=== PATIENT | male | born 1985 | race Two or more races ===

== ENCOUNTER 2023-04-05 00:28 | Inpatient (IN) | payer BC, MEDICAID ==
[~2023-04-05] VITALS: Ht 175.3 cm; Wt 89.5 kg
[2023-04-05] MEDS ORDERED: loperamide 2mg capsule PO PRN (09:25)
[2023-04-05] MEDS ORDERED: mag hydrox/Alum hydrox/simeth 30ml oral suspension PO PRN (09:25)
[2023-04-05] MEDS ORDERED: acetaminophen 325mg tablet PO PRN (09:25)
[2023-04-05] MEDS ORDERED: nicotine 21mg patch - 24 hr TD SCH (09:25)
[2023-04-05] MEDS ORDERED: NICOTINE POLACRILEX 2 MG LOZENGE BC PRN (09:25)
[2023-04-05] MEDS ORDERED: magnesium hydroxide 30ml (MOM) UD suspension PO PRN (09:25)
[2023-04-05] MEDS ORDERED: NO HOME MEDS (09:35)
[2023-04-05 10:00] VITALS: BP 170/123; PULSE 87; RESP 16; TEMP 98.9; O2SAT 98
[2023-04-05] MEDS ORDERED: GABA-530 PO (11:27)
[2023-04-05] MEDS ORDERED: LOSA50TA64 PO (11:27)
[2023-04-05] MEDS ORDERED: ESCI5TAB17 PO (11:27)
[2023-04-05] MEDS ORDERED: OMEP20CA16 PO (11:27)
[2023-04-05] MEDS ORDERED: AMPH5CAP PO (11:27)
[2023-04-05] MEDS ORDERED: ESCI5TAB PO (11:27)
[2023-04-05] MEDS ORDERED: AMPH10CA3 PO (11:35)
[2023-04-05 12:23] VITALS: RESP 16; O2SAT 87
[2023-04-05] MEDS ORDERED: LORazepam 1 MG tablet PO ONE (17:55)
[2023-04-05 19:00] VITALS: RESP 18; O2SAT 100
[2023-04-05 20:00] VITALS: BP 161/121; PULSE 76; RESP 18; TEMP 97.8; O2SAT 100
[2023-04-05] MEDS: gabapentin 100mg capsule PO SCH (20:00)
[2023-04-05] MEDS: losartan 50mg tablet PO SCH (20:01)
[2023-04-05] MEDS: acetaminophen 325mg tablet PO PRN (20:18)
[2023-04-05 21:00] VITALS: BP 142/102; O2SAT 99
[2023-04-06 07:30] VITALS: BP 130/80; PULSE 68; RESP 16; TEMP 98; O2SAT 97
[2023-04-06] MEDS: gabapentin 100mg capsule PO SCH ×2 (07:49→19:30)
[2023-04-06] MEDS: losartan 50mg tablet PO SCH ×2 (07:51→19:30)
[2023-04-06] MEDS: ESCITALOPRAM OXALATE 5 MG TABLET PO SCH (07:53)
[2023-04-06] MEDS ORDERED: ESCITALOPRAM OXALATE 5 MG TABLET PO SCH (08:00)
[2023-04-06] MEDS ORDERED: pantoprazole 40mg Tablet.DR PO SCH (08:00)
[2023-04-06 09:02] LABS: CHOL/HDL RATIO 3.7 (0.00-4.99); CHOLESTEROL 167 MG/DL (0-200); HDL CHOLESTEROL 45 MG/DL (35-60); LDL CHOLESTEROL 85 MG/DL (50-100); TRIGLYCERIDES 239 MG/DL (20-135)
[2023-04-06 09:17] LABS: HEMOGLOBIN A1C 4.8 % (4.5-6.2)
[2023-04-06] MEDS: hydrOXYzine 25 MG tablet PO PRN (12:47)
[2023-04-06 19:00] VITALS: RESP 20; O2SAT 97
[2023-04-06 19:12] VITALS: BP 160/97; PULSE 70; RESP 20; TEMP 97.5; O2SAT 97
[2023-04-06] MEDS: acetaminophen 325mg tablet PO PRN (19:45)
[2023-04-06] MEDS: traZODone 50mg tablet PO PRN (22:24)
[2023-04-07 07:00] VITALS: RESP 16; O2SAT 98
[2023-04-07] MEDS: losartan 50mg tablet PO SCH ×2 (07:24→20:33)
[2023-04-07] MEDS: pantoprazole 40mg Tablet.DR PO SCH (07:24)
[2023-04-07] MEDS: ESCITALOPRAM OXALATE 5 MG TABLET PO SCH (07:24)
[2023-04-07] MEDS: gabapentin 100mg capsule PO SCH ×2 (07:24→20:33)
[2023-04-07] MEDS: dextroamphetamine/amphetamine ER 5 MG CAP.ER.24H PO SCH (07:41)
[2023-04-07 08:00] VITALS: BP 116/79; PULSE 78; RESP 16; TEMP 97.2; O2SAT 98
[2023-04-07 19:50] VITALS: BP 145/102; PULSE 0; RESP 17; TEMP 98.3; O2SAT 98
[2023-04-07] MEDS: acetaminophen 325mg tablet PO PRN (20:32)
[2023-04-07] MEDS: prazosin 1mg capsule PO SCH (20:33)
[2023-04-07] MEDS: traZODone 50mg tablet PO PRN (20:33)
[2023-04-07 21:28] VITALS: BP 170/114; RESP 16
[2023-04-07] MEDS ORDERED: cloNIDine 0.1 mg tablet PO ONE (21:45)
[2023-04-07] MEDS: hydrOXYzine 25 MG tablet PO PRN (21:49)
[2023-04-07 22:45] VITALS: BP 146/110; RESP 16
[2023-04-08 07:00] VITALS: RESP 16; O2SAT 98
[2023-04-08 08:00] VITALS: BP 107/67; PULSE 67; RESP 16; TEMP 97; O2SAT 98
[2023-04-08] MEDS: dextroamphetamine/amphetamine ER 5 MG CAP.ER.24H PO SCH (08:00)
[2023-04-08] MEDS: losartan 50mg tablet PO SCH ×2 (08:56→20:08)
[2023-04-08] MEDS: gabapentin 100mg capsule PO SCH ×2 (08:57→20:09)
[2023-04-08] MEDS: ESCITALOPRAM OXALATE 5 MG TABLET PO SCH (08:57)
[2023-04-08] MEDS: pantoprazole 40mg Tablet.DR PO SCH (08:57)
[2023-04-08] MEDS: hydrOXYzine 25 MG tablet PO PRN ×2 (10:25→20:10)
[2023-04-08 19:25] VITALS: BP 141/99; PULSE 80; RESP 16; TEMP 98; O2SAT 98
[2023-04-08] MEDS: traZODone 50mg tablet PO PRN (20:08)
[2023-04-08] MEDS: prazosin 1mg capsule PO SCH (20:09)
[2023-04-08] MEDS: acetaminophen 325mg tablet PO PRN (20:09)
[2023-04-09 07:00] VITALS: RESP 14; O2SAT 100
[2023-04-09] MEDS: gabapentin 100mg capsule PO SCH (07:49)
[2023-04-09] MEDS: pantoprazole 40mg Tablet.DR PO SCH (07:49)
[2023-04-09] MEDS: ESCITALOPRAM OXALATE 5 MG TABLET PO SCH (07:50)
[2023-04-09] MEDS: losartan 50mg tablet PO SCH (07:50)
[2023-04-09 08:00] VITALS: BP 127/83; PULSE 59; RESP 14; TEMP 97.3; O2SAT 100
[2023-04-09] MEDS: dextroamphetamine/amphetamine ER 5 MG CAP.ER.24H PO SCH (08:00)
[2023-04-09] MEDS ORDERED: PRAZ1CAP5 PO (11:21)
[2023-04-09] MEDS ORDERED: HYDR-3686 PO (11:21)
[2023-04-09] MEDS ORDERED: GABA-530 PO (11:21)
[2023-04-09] MEDS ORDERED: ESCI-8 PO (11:21)
[2023-04-09] MEDS ORDERED: TRAZ-251 PO (11:21)
== END 2023-04-09 13:25 | disposition home or self-care (01) | DRG 885 ==
LOC: ADULT MH 10:01
PROVIDERS: ADMIT Psychiatry & Neurology Psychiatry; ATTEND Psychiatry & Neurology Psychiatry
PROC: GZHZZZZ Group Psychotherapy (ICD-10-PCS; principal; 2023-04-05)
DX: F33.2 Major depressive disorder, recurrent severe without psychotic features (principal); R45.851 Suicidal ideations; G47.30 Sleep apnea, unspecified; G62.9 Polyneuropathy, unspecified; I10 Essential (primary) hypertension; M25.562 Pain in left knee; F19.10 Other psychoactive substance abuse, uncomplicated; F90.9 Attention-deficit hyperactivity disorder, unspecified type; F41.1 Generalized anxiety disorder; F10.21 Alcohol dependence, in remission; F15.21 Other stimulant dependence, in remission; F11.21 Opioid dependence, in remission; Z91.51 Personal history of suicidal behavior; Z88.5 Allergy status to narcotic agent; Z91.018 Allergy to other foods
CPT/HCPCS: 36415; 70551; 73564; 80061; 83036; 85025; 87081; Q0177

== ENCOUNTER 2023-07-19 22:19 | Inpatient (IN) | payer BC, MEDICAID ==
[~2023-07-19] VITALS: Ht 177.8 cm; Wt 79.5 kg
[~2023-07-19 22:19] MED LIST: AMPH10CA3 PO; ESCI-8 PO; GABA-530 PO; HYDR-3686 PO; LOSA50TA64 PO; OMEP20CA16 PO; PRAZ1CAP5 PO; TRAZ-251 PO
[2023-07-19 23:18] LABS: WHITE BLOOD COUNT 7.3 X10'3 (4.5-11.0)
[2023-07-19 23:19] LABS: BASOPHILS # (AUTO) 0.1 X10'3 (0-0.2); BASOPHILS % (AUTO) 1.1 % (0-1); EOSINOPHILS # (AUTO) 0.2 X10'3 (0-0.9); EOSINOPHILS % (AUTO) 2.8 % (0-6); HEMATOCRIT 43.4 % (42.0-52.0); HEMOGLOBIN 15.3 g/dl (14.0-17.9); LYMPHOCYTES # (AUTO) 1.9 X10'3 (1.1-4.8); LYMPHOCYTES % (AUTO) 25.4 % (21-51); MEAN CORPUSCULAR HEMOGLOBIN 32.7 PG (27.0-31.0); MEAN CORPUSCULAR HGB CONC 35.3 g/dL (33.0-36.5); MEAN CORPUSCULAR VOLUME 92.7 FL (78-98); MEAN PLATELET VOLUME 7.1 FL (7.4-10.4); MONOCYTES # (AUTO) 0.7 X10'3 (0-0.9); NEUTROPHILS # (AUTO) 4.5 X10'3 (1.8-7.7); NEUTROPHILS % (AUTO) 61.7 % (42-75); PLATELET COUNT 212 X10'3 (140-440); RED BLOOD COUNT 4.68 X10'6 (4.70-6.10); RED CELL DISTRIBUTION WIDTH 13.6 % (11.5-14.5)
[2023-07-19 23:34] LABS: ALBUMIN 3.8 G/DL (3.4-5.0); ANION GAP 13 (8-16); BLOOD UREA NITROGEN 8 MG/DL (7-18); BUN/CREATININE RATIO 7.3 (10.0-20.0); CALCIUM 8.6 MG/DL (8.5-10.1); CHLORIDE 98 MMOL/L (99-107); GLUCOSE 126 MG/DL (70-104); POTASSIUM 3.3 MMOL/L (3.5-5.1); SODIUM 137 MMOL/L (135-145); TOTAL CARBON DIOXIDE 26.4 MMOL/L (24-32); eCRCL 83 ML/MIN; eGFR 75 ML/MIN
[2023-07-19] MEDS: fentaNYL/PF 50MCG/1 ML 2ML syringe IV ONE (23:53)
[2023-07-19] MEDS: ondansetron/PF 4mg/2ml inj IV ONE (23:53)
[2023-07-19] MEDS: normal saline 1000ml 1,000 ML IV ONE (23:57)
[2023-07-20] MEDS: fentaNYL/PF 50MCG/1 ML 2ML syringe IV ONE (01:32)
[2023-07-20 01:48] LABS: ALANINE AMINOTRANSFERASE 279 U/L (12-78); ALBUMIN/GLOBULIN RATIO 0.9 (1.1-1.5); ALKALINE PHOSPHATASE 125 IU/L (46-116); ASPARTATE AMINO TRANSFERASE 175 U/L (10-37); BILIRUBIN,TOTAL 0.6 MG/DL (0.1-1.0); ETHANOL 109 MG/DL (<10)
[2023-07-20 02:07] LABS: LIPASE > 375 U/L (16-77)
[2023-07-20] MEDS ORDERED: magnesium 2GM in 50ml NS 50 ML IV PRN (03:55)
[2023-07-20] MEDS ORDERED: mag hydrox/Alum hydrox/simeth 30ml oral suspension PO PRN (03:55)
[2023-07-20] MEDS ORDERED: magnesium 4gm in 100ml NS 100 ML IV PRN (03:55)
[2023-07-20] MEDS ORDERED: magnesium hydroxide 30ml (MOM) UD suspension PO PRN (03:55)
[2023-07-20] MEDS ORDERED: acetaminophen 325mg tablet PO PRN (03:55)
[2023-07-20] MEDS ORDERED: potassium Cl 20 mEq SR tablet PO PRN (03:55)
[2023-07-20] MEDS ORDERED: potassium Cl 40MEQ/1/2NS 520ml 520 ML IV PRN (03:55)
[2023-07-20] MEDS ORDERED: magnesium Cl slow-release 64mg tablet PO PRN (03:55)
[2023-07-20 04:31] LABS: BILIRUBIN,URINE NEGATIVE (Neg); CLARITY,URINE CLEAR (Clear); COLOR,URINE YELLOW (Yellow); GLUCOSE, URINE NEGATIVE (Neg); KETONES,URINE NEGATIVE (Neg); LEUKOCYTE ESTERASE ,URINE NEGATIVE (Neg); NITRITES, URINE NEGATIVE (Neg); OCCULT BLOOD,URINE NEGATIVE (Neg); PROTEIN,URINE NEGATIVE (Neg); UROBILINOGEN,URINE 0.2 E.U/dL (0.2-1.0)
[2023-07-20 04:36] LABS: UA COLLECTION TYPE CLN CATCH MIDSTREAM
[2023-07-20 04:37] LABS: URINE AMPHETAMINE SCREEN NEGATIVE (Neg); URINE BARBITUATE SCREEN NEGATIVE (Neg); URINE BENZODIAZEPINES SCREEN NEGATIVE (Neg); URINE CANNABINOID SCREEN NEGATIVE (Neg); URINE COCAINE SCREEN NEGATIVE (Neg); URINE METHADONE SCREEN NEGATIVE (Neg); URINE OPIATE SCREEN NEGATIVE (Neg); URINE PHENCYCLIDINE SCREEN NEGATIVE (Neg)
[2023-07-20] MEDS ORDERED: haloperidol lactate 5mg/ml inj IM PRN (05:05)
[2023-07-20] MEDS ORDERED: haloperidol 5mg tablet PO PRN (05:05)
[2023-07-20] MEDS: ringers solution, lacted 1,000 ML IV SCH (05:13)
[2023-07-20] MEDS: HYDROmorphone 1 mg/ml syringe IV PRN (05:46)
[2023-07-20] MEDS ORDERED: HYDRALAZINE (06:41)
[2023-07-20 08:23] LABS: CHOL/HDL RATIO 4.8 (0.00-4.99); CHOLESTEROL 193 MG/DL (0-200); FREE T4 (FREE THYROXINE) 0.85 NG/DL (0.73-1.40); HDL CHOLESTEROL 40 MG/DL (35-60); LDL CHOLESTEROL 100 MG/DL (50-100); LIPASE 337 U/L (16-77); THYROID STIMULATING HORMONE 2.46 ulU/ml (0.34-4.50); TRIGLYCERIDES 386 MG/DL (20-135)
[2023-07-20] MEDS: pantoprazole 40 MG vial IV SCH (08:31)
[2023-07-20] MEDS: multivitamins, therapeutics tablet PO SCH (08:32)
[2023-07-20] MEDS: LORazepam 1 MG tablet PO PRN (08:32)
[2023-07-20 08:34] LABS: HEMOGLOBIN A1C 5.5 % (4.5-6.2)
[2023-07-20] MEDS: losartan 50mg tablet PO SCH ×2 (08:35→08:45)
[2023-07-20] MEDS: heparin, porcine 5000 units/ml vial SQ SCH (08:37)
[2023-07-20] MEDS: docusate sod 100mg capsule PO SCH (08:38)
[2023-07-20] MEDS: K and/or MAG REPLACEMENT MC SCH (08:39)
[2023-07-20] MEDS: potassium Cl 20 mEq SR tablet PO PRN (08:48)
[2023-07-20 18:00] VITALS: BP 166/117; PULSE 73; RESP 14; TEMP 97.7; O2SAT 97
[2023-07-20 20:10] VITALS: RESP 16; O2SAT 98
[2023-07-20 22:00] VITALS: BP 166/118; PULSE 70; RESP 16; TEMP 97.7; O2SAT 98
[2023-07-21] VITALS (8 sets, daily range): BP systolic 145–184; BP diastolic 91–133; PULSE 63–82; RESP 16–19; TEMP 96.7–98.4; O2SAT 94–99
[2023-07-21 06:14] LABS: BASOPHILS # (AUTO) 0.1 X10'3 (0-0.2); BASOPHILS % (AUTO) 1.2 % (0-1); EOSINOPHILS # (AUTO) 0.2 X10'3 (0-0.9); EOSINOPHILS % (AUTO) 5.3 % (0-6); HEMATOCRIT 39.3 % (42.0-52.0); HEMOGLOBIN 13.8 g/dl (14.0-17.9); LYMPHOCYTES # (AUTO) 1.4 X10'3 (1.1-4.8); MEAN CORPUSCULAR HEMOGLOBIN 32.7 PG (27.0-31.0); MEAN CORPUSCULAR HGB CONC 35.1 g/dL (33.0-36.5); MEAN CORPUSCULAR VOLUME 93.1 FL (78-98); MEAN PLATELET VOLUME 7.4 FL (7.4-10.4); MONOCYTES # (AUTO) 0.4 X10'3 (0-0.9); MONOCYTES % (AUTO) 9.6 % (2-12); NEUTROPHILS # (AUTO) 2.3 X10'3 (1.8-7.7); NEUTROPHILS % (AUTO) 51.9 % (42-75); PLATELET COUNT 144 X10'3 (140-440); RED BLOOD COUNT 4.22 X10'6 (4.70-6.10); RED CELL DISTRIBUTION WIDTH 13.5 % (11.5-14.5); WHITE BLOOD COUNT 4.5 X10'3 (4.5-11.0)
[2023-07-21 06:29] LABS: ALANINE AMINOTRANSFERASE 178 U/L (12-78); ALBUMIN 3.1 G/DL (3.4-5.0); ALBUMIN/GLOBULIN RATIO 0.8 (1.1-1.5); ALKALINE PHOSPHATASE 54 IU/L (46-116); ANION GAP 6 (8-16); ASPARTATE AMINO TRANSFERASE 101 U/L (10-37); BILIRUBIN,TOTAL 1.5 MG/DL (0.1-1.0); BLOOD UREA NITROGEN 10 MG/DL (7-18); BUN/CREATININE RATIO 8.4 (10.0-20.0); CALCIUM 8.7 MG/DL (8.5-10.1); CHLORIDE 99 MMOL/L (99-107); CREATININE 1.19 MG/DL (0.60-1.10); GLUCOSE 102 MG/DL (70-104); MAGNESIUM 1.6 MG/DL (1.5-2.4); PHOSPHORUS 3.5 MG/DL (2.3-4.5); SODIUM 137 MMOL/L (135-145); TOTAL CARBON DIOXIDE 31.8 MMOL/L (24-32); TOTAL PROTEIN 6.9 G/DL (6.4-8.2); eCRCL 88 ML/MIN; eGFR 69 ML/MIN
[2023-07-21] MEDS: LORazepam 2 mg/ml vial IV PRN (07:52)
[2023-07-21 09:27] LABS: CHOLESTEROL 171 MG/DL (0-200); HDL CHOLESTEROL 34 MG/DL (35-60); LDL CHOLESTEROL 80 MG/DL (50-100); TRIGLYCERIDES 447 MG/DL (20-135)
[2023-07-21] MEDS: cloNIDine 0.1 mg tablet PO PRN (11:08)
[2023-07-21] MEDS: atenolol 25mg tablet PO SCH (11:08)
[2023-07-21] MEDS: hyDRALAzine 10mg tablet PO PRN (21:31)
[2023-07-22] VITALS (8 sets, daily range): BP systolic 126–173; BP diastolic 93–122; PULSE 61–69; RESP 16–18; TEMP 96.2–97.1; O2SAT 95–98
[2023-07-22 06:14] LABS: ALANINE AMINOTRANSFERASE 188 U/L (12-78); ALBUMIN 3.3 G/DL (3.4-5.0); ALBUMIN/GLOBULIN RATIO 0.8 (1.1-1.5); ALKALINE PHOSPHATASE 76 IU/L (46-116); ASPARTATE AMINO TRANSFERASE 140 U/L (10-37); BILIRUBIN,TOTAL 1.1 MG/DL (0.1-1.0); BLOOD UREA NITROGEN 9 MG/DL (7-18); BUN/CREATININE RATIO 8.9 (10.0-20.0); CHLORIDE 97 MMOL/L (99-107); CREATININE 1.01 MG/DL (0.60-1.10); GLUCOSE 91 MG/DL (70-104); MAGNESIUM 2.1 MG/DL (1.5-2.4); PHOSPHORUS 4.6 MG/DL (2.3-4.5); POTASSIUM 4.4 MMOL/L (3.5-5.1); SODIUM 132 MMOL/L (135-145); TOTAL PROTEIN 7.4 G/DL (6.4-8.2); eCRCL 103 ML/MIN; eGFR 83 ML/MIN
[2023-07-22 06:15] LABS: BASOPHILS % (AUTO) 0.8 % (0-1); EOSINOPHILS # (AUTO) 0.2 X10'3 (0-0.9); EOSINOPHILS % (AUTO) 4.1 % (0-6); HEMATOCRIT 41.2 % (42.0-52.0); HEMOGLOBIN 14.7 g/dl (14.0-17.9); LYMPHOCYTES # (AUTO) 1.3 X10'3 (1.1-4.8); LYMPHOCYTES % (AUTO) 25.1 % (21-51); MEAN CORPUSCULAR HEMOGLOBIN 33.2 PG (27.0-31.0); MEAN CORPUSCULAR HGB CONC 35.7 g/dL (33.0-36.5); MEAN CORPUSCULAR VOLUME 92.9 FL (78-98); MEAN PLATELET VOLUME 7.8 FL (7.4-10.4); MONOCYTES # (AUTO) 0.4 X10'3 (0-0.9); MONOCYTES % (AUTO) 7.3 % (2-12); NEUTROPHILS # (AUTO) 3.2 X10'3 (1.8-7.7); NEUTROPHILS % (AUTO) 62.7 % (42-75); PLATELET COUNT 173 X10'3 (140-440); RED BLOOD COUNT 4.43 X10'6 (4.70-6.10); RED CELL DISTRIBUTION WIDTH 13.5 % (11.5-14.5)
[2023-07-22 06:22] LABS: ANION GAP 8 (8-16); TOTAL CARBON DIOXIDE 27.2 MMOL/L (24-32)
[2023-07-22] MEDS: pantoprazole 40mg Tablet.DR PO SCH (08:15)
[2023-07-22] MEDS: losartan 50mg tablet PO SCH ×2 (08:16→20:00)
[2023-07-22] MEDS: ondansetron/PF 4mg/2ml inj IV PRN (09:52)
[2023-07-22] MEDS ORDERED: traZODone 50mg tablet PO PRN (13:25)
[2023-07-22] MEDS: gabapentin 100mg capsule PO SCH (19:55)
[2023-07-22] MEDS: prazosin 1mg capsule PO SCH (21:46)
[2023-07-23 03:16] LABS: BASOPHILS % (AUTO) 0.9 % (0-1); EOSINOPHILS # (AUTO) 0.2 X10'3 (0-0.9); EOSINOPHILS % (AUTO) 3.1 % (0-6); HEMATOCRIT 41.8 % (42.0-52.0); HEMOGLOBIN 14.9 g/dl (14.0-17.9); LYMPHOCYTES # (AUTO) 1.2 X10'3 (1.1-4.8); LYMPHOCYTES % (AUTO) 24.8 % (21-51); MEAN CORPUSCULAR HEMOGLOBIN 33.2 PG (27.0-31.0); MEAN CORPUSCULAR HGB CONC 35.6 g/dL (33.0-36.5); MEAN CORPUSCULAR VOLUME 93.2 FL (78-98); MEAN PLATELET VOLUME 7.5 FL (7.4-10.4); MONOCYTES # (AUTO) 0.3 X10'3 (0-0.9); MONOCYTES % (AUTO) 6.7 % (2-12); NEUTROPHILS # (AUTO) 3.1 X10'3 (1.8-7.7); NEUTROPHILS % (AUTO) 64.5 % (42-75); PLATELET COUNT 187 X10'3 (140-440); RED BLOOD COUNT 4.49 X10'6 (4.70-6.10); RED CELL DISTRIBUTION WIDTH 13.9 % (11.5-14.5); WHITE BLOOD COUNT 4.9 X10'3 (4.5-11.0)
[2023-07-23 03:29] LABS: ALANINE AMINOTRANSFERASE 315 U/L (12-78); ALBUMIN 3.4 G/DL (3.4-5.0); ALBUMIN/GLOBULIN RATIO 0.8 (1.1-1.5); ALKALINE PHOSPHATASE 63 IU/L (46-116); ANION GAP 9 (8-16); ASPARTATE AMINO TRANSFERASE 343 U/L (10-37); BILIRUBIN,TOTAL 1.2 MG/DL (0.1-1.0); BLOOD UREA NITROGEN 10 MG/DL (7-18); BUN/CREATININE RATIO 8.5 (10.0-20.0); CALCIUM 9.3 MG/DL (8.5-10.1); CHLORIDE 100 MMOL/L (99-107); CREATININE 1.17 MG/DL (0.60-1.10); GLUCOSE 96 MG/DL (70-104); MAGNESIUM 2.3 MG/DL (1.5-2.4); PHOSPHORUS 4.1 MG/DL (2.3-4.5); SODIUM 135 MMOL/L (135-145); TOTAL CARBON DIOXIDE 25.8 MMOL/L (24-32); TOTAL PROTEIN 7.5 G/DL (6.4-8.2); eCRCL 89 ML/MIN; eGFR 70 ML/MIN
[2023-07-23 06:40] VITALS: BP 115/83; PULSE 79; RESP 16; TEMP 97.2; O2SAT 96
[2023-07-23] MEDS: thiamine 100mg tablet PO SCH (07:43)
[2023-07-23 08:00] VITALS: RESP 16; O2SAT 96
[2023-07-23] MEDS ORDERED: non-formulary drug (Omeprazole 1 CAP) PO SCH (08:00)
[2023-07-23] MEDS: normal saline 1000ml 1,000 ML IV SCH (10:29)
[2023-07-23] MEDS: dicyclomine 10 MG capsule PO PRN (10:33)
[2023-07-23] MEDS: ESCITALOPRAM 10 mg tablet 10 MG TABLET PO SCH (10:58)
[2023-07-23 11:00] VITALS: BP 148/118; PULSE 80; RESP 18; TEMP 97.5; O2SAT 98
[2023-07-23 18:00] VITALS: BP 155/104; PULSE 66; RESP 18; TEMP 97.7; O2SAT 99
[2023-07-23 20:00] VITALS: RESP 18; O2SAT 95
[2023-07-23 22:00] VITALS: BP 142/104; PULSE 67; RESP 18; TEMP 97.6; O2SAT 97
[2023-07-23] MEDS: traZODone 50mg tablet PO PRN (22:12)
[2023-07-24 06:00] VITALS: BP 139/104; PULSE 69; RESP 18; TEMP 97; O2SAT 99
[2023-07-24 06:19] LABS: ALANINE AMINOTRANSFERASE 292 U/L (12-78); ALBUMIN 3.2 G/DL (3.4-5.0); ALBUMIN/GLOBULIN RATIO 0.8 (1.1-1.5); ALKALINE PHOSPHATASE 62 IU/L (46-116); ANION GAP 8 (8-16); ASPARTATE AMINO TRANSFERASE 253 U/L (10-37); BASOPHILS # (AUTO) 0.1 X10'3 (0-0.2); BASOPHILS % (AUTO) 1.2 % (0-1); BLOOD UREA NITROGEN 11 MG/DL (7-18); BUN/CREATININE RATIO 9.3 (10.0-20.0); CALCIUM 8.6 MG/DL (8.5-10.1); CHLORIDE 102 MMOL/L (99-107); CREATININE 1.18 MG/DL (0.60-1.10); EOSINOPHILS # (AUTO) 0.2 X10'3 (0-0.9); GLUCOSE 87 MG/DL (70-104); HEMATOCRIT 40.8 % (42.0-52.0); HEMOGLOBIN 14.4 g/dl (14.0-17.9); LYMPHOCYTES # (AUTO) 1.3 X10'3 (1.1-4.8); MAGNESIUM 2.2 MG/DL (1.5-2.4); MEAN CORPUSCULAR HEMOGLOBIN 33.1 PG (27.0-31.0); MEAN CORPUSCULAR HGB CONC 35.2 g/dL (33.0-36.5); MEAN CORPUSCULAR VOLUME 93.9 FL (78-98); MEAN PLATELET VOLUME 7.4 FL (7.4-10.4); MONOCYTES # (AUTO) 0.4 X10'3 (0-0.9); MONOCYTES % (AUTO) 9.9 % (2-12); NEUTROPHILS # (AUTO) 2.6 X10'3 (1.8-7.7); NEUTROPHILS % (AUTO) 56.9 % (42-75); PHOSPHORUS 3.5 MG/DL (2.3-4.5); PLATELET COUNT 191 X10'3 (140-440); RED BLOOD COUNT 4.34 X10'6 (4.70-6.10); SODIUM 137 MMOL/L (135-145); TOTAL CARBON DIOXIDE 27.1 MMOL/L (24-32); TOTAL PROTEIN 7.1 G/DL (6.4-8.2); WHITE BLOOD COUNT 4.5 X10'3 (4.5-11.0); eCRCL 89 ML/MIN; eGFR 69 ML/MIN
[2023-07-24] MEDS: hydrOXYzine 25 MG tablet PO PRN (06:55)
[2023-07-24] MEDS ORDERED: NOR5T PO (09:30)
[2023-07-24] MEDS ORDERED: MULT-25 PO (09:30)
[2023-07-24] MEDS ORDERED: LOSA50TA64 PO (09:30)
[2023-07-24] MEDS ORDERED: thiamine tablet PO (09:30)
[2023-07-24] MEDS ORDERED: FOLI1TAB27 PO (09:30)
[2023-07-24] MEDS ORDERED: ATEN-168 PO (09:30)
[2023-07-24 09:43] LABS: LIPASE 111 U/L (16-77)
[2023-07-24 10:00] VITALS: BP 145/104; PULSE 73; RESP 16; TEMP 98.2; O2SAT 99
[2023-07-24] MEDS: folic acid 1mg tablet PO SCH (11:04)
[2023-07-24 11:05] VITALS: BP_SYST 145; PULSE 73
[2023-07-24] MEDS: amLODIPine 5mg tablet PO SCH (11:05)
== END 2023-07-24 13:21 | disposition home or self-care (01) | DRG 282 ==
LOC: ER 22:21 → UNDOADMIN 07-20 04:09 → ED HOLD 07-20 04:09 → EDBEDREQ 07-20 16:23 → ED HOLD 07-20 18:25 → SUR 3N 07-20 18:25
PROVIDERS: ADMIT Internal Medicine Sleep Medicine; ATTEND Internal Medicine
DX: K85.20 Alcohol induced acute pancreatitis without necrosis or infection (principal); N17.0 Acute kidney failure with tubular necrosis; I42.9 Cardiomyopathy, unspecified; K76.0 Fatty (change of) liver, not elsewhere classified; E78.5 Hyperlipidemia, unspecified; F10.239 Alcohol dependence with withdrawal, unspecified; F32.9 Major depressive disorder, single episode, unspecified; K21.9 Gastro-esophageal reflux disease without esophagitis; I10 Essential (primary) hypertension; K29.80 Duodenitis without bleeding; Z79.899 Other long term (current) drug therapy; Z88.5 Allergy status to narcotic agent; Z88.8 Allergy status to other drugs, medicaments and biological substances
CPT/HCPCS: 36415; 71045; 74176; 80053; 80061; 80305; 80320; 81003; 82948; 83036; 83690; 83735; 84100; 84439; 84443; 84484; 85025; 87081; 93005; 93306; 96374; 96375; 99285; C9113; G0378; J1170; J1644; J2060; J2405; J3010; J7030; J7120; Q0177

== ENCOUNTER 2023-08-31 17:18 | Inpatient (IN) | payer MEDICAID ==
[~2023-08-31] VITALS: Ht 175.3 cm; Wt 94.0 kg
[~2023-08-31 17:18] MED LIST changes: -AMPH10CA3 PO; +ATEN-168 PO; +FOLI1TAB27 PO; +MULT-25 PO; +NOR5T PO; +thiamine tablet PO
[2023-08-31 18:15] LABS: BASOPHILS # (AUTO) 0.1 X10'3 (0-0.2); BASOPHILS % (AUTO) 1.5 % (0-1); EOSINOPHILS # (AUTO) 0.1 X10'3 (0-0.9); EOSINOPHILS % (AUTO) 1.3 % (0-6); HEMATOCRIT 43.5 % (42.0-52.0); HEMOGLOBIN 15.4 g/dl (14.0-17.9); LYMPHOCYTES # (AUTO) 1.4 X10'3 (1.1-4.8); LYMPHOCYTES % (AUTO) 21.3 % (21-51); MEAN CORPUSCULAR HEMOGLOBIN 33.6 PG (27.0-31.0); MEAN CORPUSCULAR HGB CONC 35.5 g/dL (33.0-36.5); MEAN CORPUSCULAR VOLUME 94.7 FL (78-98); MEAN PLATELET VOLUME 7.8 FL (7.4-10.4); MONOCYTES # (AUTO) 0.4 X10'3 (0-0.9); MONOCYTES % (AUTO) 6.5 % (2-12); NEUTROPHILS # (AUTO) 4.4 X10'3 (1.8-7.7); NEUTROPHILS % (AUTO) 69.4 % (42-75); PLATELET COUNT 227 X10'3 (140-440); RED BLOOD COUNT 4.59 X10'6 (4.70-6.10); RED CELL DISTRIBUTION WIDTH 12.9 % (11.5-14.5); WHITE BLOOD COUNT 6.4 X10'3 (4.5-11.0)
[2023-08-31 18:22] LABS: ALANINE AMINOTRANSFERASE 295 U/L (12-78); ALBUMIN 4.3 G/DL (3.4-5.0); ALKALINE PHOSPHATASE 93 IU/L (46-116); ANION GAP 15 (8-16); ASPARTATE AMINO TRANSFERASE 209 U/L (10-37); BILIRUBIN,TOTAL 0.7 MG/DL (0.1-1.0); BLOOD UREA NITROGEN 5 MG/DL (7-18); BUN/CREATININE RATIO 4.8 (10.0-20.0); CALCIUM 9.1 MG/DL (8.5-10.1); CHLORIDE 103 MMOL/L (99-107); CREATININE 1.05 MG/DL (0.60-1.10); GLUCOSE 150 MG/DL (70-104); POTASSIUM 3.1 MMOL/L (3.5-5.1); SODIUM 143 MMOL/L (135-145); TOTAL CARBON DIOXIDE 24.7 MMOL/L (24-32); TOTAL PROTEIN 8.7 G/DL (6.4-8.2); eCRCL 96 ML/MIN; eGFR 79 ML/MIN
[2023-08-31 18:33] LABS: LIPASE 82 U/L (16-77); PRO BRAIN NATRIURETIC PEPTIDE < 30 PG/ML (0-125)
[2023-08-31 20:29] LABS: ETHANOL 28 MG/DL (<10)
[2023-08-31] MEDS: phenobarbital sod 130mg/ml inj. IV ONE (20:57)
[2023-08-31] MEDS: thiamine 100mg/ml 2ml inj. IV ONE (20:57)
[2023-08-31] MEDS: ondansetron/PF 4mg/2ml inj IV ONE (21:46)
[2023-08-31] MEDS ORDERED: mag hydrox/Alum hydrox/simeth 30ml oral suspension PO PRN (22:10)
[2023-08-31] MEDS ORDERED: magnesium hydroxide 30ml (MOM) UD suspension PO PRN (22:10)
[2023-08-31] MEDS ORDERED: magnesium Cl slow-release 64mg tablet PO PRN (22:10)
[2023-08-31] MEDS ORDERED: dextrose 50%-water 50ml dispensing syringe IV PRN (22:10)
[2023-08-31] MEDS ORDERED: LORazepam 2 mg/ml vial IV PRN (22:10)
[2023-08-31] MEDS ORDERED: potassium Cl 20 mEq SR tablet PO PRN (22:10)
[2023-08-31] MEDS ORDERED: potassium Cl 40MEQ/1/2NS 520ml 520 ML IV PRN (22:10)
[2023-08-31] MEDS ORDERED: ondansetron 4mg rapidly disintigrating tab PO PRN (22:10)
[2023-08-31] MEDS ORDERED: haloperidol lactate 5mg/ml inj IM PRN (22:10)
[2023-08-31] MEDS ORDERED: magnesium 2GM in 50ml NS 50 ML IV PRN (22:10)
[2023-08-31] MEDS ORDERED: acetaminophen 325mg tablet PO PRN (22:10)
[2023-08-31] MEDS ORDERED: metoclopramide 5 mg/ml inj IV PRN (22:10)
[2023-08-31] MEDS ORDERED: diphenhydrAMINE 50 mg/ml inj IV PRN (22:10)
[2023-08-31] MEDS ORDERED: magnesium 4gm in 100ml NS 100 ML IV PRN (22:10)
[2023-08-31 22:45] LABS: MAGNESIUM 1.7 MG/DL (1.5-2.4); POTASSIUM 3.7 MMOL/L (3.5-5.1); PRO BRAIN NATRIURETIC PEPTIDE 37 PG/ML (0-125)
[2023-08-31 22:51] LABS: ETHANOL < 10 MG/DL (<10)
[2023-08-31] MEDS: pantoprazole 40mg Tablet.DR PO STA (23:12)
[2023-08-31] MEDS: potassium Cl 20 mEq SR tablet PO PRN (23:13)
[2023-08-31] MEDS: folic acid 1mg/0.2ml inj IV SCH (23:13)
[2023-08-31] MEDS: normal saline 1000ml 1,000 ML IV SCH (23:13)
[2023-08-31] MEDS ORDERED: diazepam inj 5 MG/ML inj. IV PRN (23:15)
[2023-08-31 23:33] LABS: BILIRUBIN,URINE NEGATIVE (Neg); CLARITY,URINE CLEAR (Clear); COLOR,URINE YELLOW (Yellow); GLUCOSE, URINE NEGATIVE (Neg); KETONES,URINE NEGATIVE (Neg); LEUKOCYTE ESTERASE ,URINE NEGATIVE (Neg); NITRITES, URINE NEGATIVE (Neg); OCCULT BLOOD,URINE NEGATIVE (Neg); PROTEIN,URINE 100 mg/dl (Neg)
[2023-08-31 23:38] LABS: UA COLLECTION TYPE CLN CATCH MIDSTREAM
[2023-08-31 23:44] LABS: WBC,URINE 0-4 /HPF (0-4)
[2023-08-31 23:45] LABS: BACTERIA,URINE NONE SEEN /HPF (Neg); FINE GRANULAR CAST 0-3 /LPF (NEGATIVE); RBC,URINE 0-2 /HPF (0-2); SQUAMOUS EPITHELIAL CELL,UR FEW /LPF (FEW)
[2023-08-31 23:47] LABS: URINE AMPHETAMINE SCREEN NEGATIVE (Neg); URINE BARBITUATE SCREEN POSITIVE (Neg); URINE BENZODIAZEPINES SCREEN NEGATIVE (Neg); URINE CANNABINOID SCREEN NEGATIVE (Neg); URINE COCAINE SCREEN NEGATIVE (Neg); URINE METHADONE SCREEN NEGATIVE (Neg); URINE OPIATE SCREEN NEGATIVE (Neg); URINE PHENCYCLIDINE SCREEN NEGATIVE (Neg)
[2023-09-01] VITALS (9 sets, daily range): BP systolic 134–157; BP diastolic 94–119; PULSE 70–80; RESP 12–21; TEMP 97.6–98; O2SAT 96–99
[2023-09-01] MEDS: chlordiazePOXIDE 25mg capsule PO PRN (00:47)
[2023-09-01 04:55] LABS: BASOPHILS # (AUTO) 0.1 X10'3 (0-0.2); BASOPHILS % (AUTO) 1.1 % (0-1); EOSINOPHILS # (AUTO) 0.1 X10'3 (0-0.9); EOSINOPHILS % (AUTO) 1.8 % (0-6); HEMATOCRIT 39.2 % (42.0-52.0); HEMOGLOBIN 13.5 g/dl (14.0-17.9); LYMPHOCYTES # (AUTO) 1.9 X10'3 (1.1-4.8); LYMPHOCYTES % (AUTO) 30.4 % (21-51); MEAN CORPUSCULAR HEMOGLOBIN 32.7 PG (27.0-31.0); MEAN CORPUSCULAR HGB CONC 34.5 g/dL (33.0-36.5); MEAN CORPUSCULAR VOLUME 94.8 FL (78-98); MEAN PLATELET VOLUME 7.6 FL (7.4-10.4); MONOCYTES # (AUTO) 0.6 X10'3 (0-0.9); MONOCYTES % (AUTO) 9.3 % (2-12); NEUTROPHILS # (AUTO) 3.6 X10'3 (1.8-7.7); NEUTROPHILS % (AUTO) 57.4 % (42-75); PLATELET COUNT 193 X10'3 (140-440); RED BLOOD COUNT 4.14 X10'6 (4.70-6.10); RED CELL DISTRIBUTION WIDTH 12.8 % (11.5-14.5); WHITE BLOOD COUNT 6.3 X10'3 (4.5-11.0)
[2023-09-01 05:04] LABS: APTT 25 SECONDS (22-32); INR 1.1 INR; PROTHROMBIN TIME 11.4 SECONDS (9.0-12.0)
[2023-09-01 05:08] LABS: ALANINE AMINOTRANSFERASE 215 U/L (12-78); ALBUMIN 3.6 G/DL (3.4-5.0); ALKALINE PHOSPHATASE 64 IU/L (46-116); ANION GAP 7 (8-16); ASPARTATE AMINO TRANSFERASE 143 U/L (10-37); BILIRUBIN,TOTAL 0.8 MG/DL (0.1-1.0); BLOOD UREA NITROGEN 7 MG/DL (7-18); BUN/CREATININE RATIO 7.2 (10.0-20.0); CALCIUM 8.6 MG/DL (8.5-10.1); CHLORIDE 100 MMOL/L (99-107); CHOL/HDL RATIO 4.9 (0.00-4.99); CHOLESTEROL 173 MG/DL (0-200); CREATININE 0.97 MG/DL (0.60-1.10); GLUCOSE 108 MG/DL (70-104); HDL CHOLESTEROL 35 MG/DL (35-60); LDL CHOLESTEROL 95 MG/DL (50-100); MAGNESIUM 1.8 MG/DL (1.5-2.4); PHOSPHORUS 2.5 MG/DL (2.3-4.5); POTASSIUM 3.4 MMOL/L (3.5-5.1); SODIUM 136 MMOL/L (135-145); TOTAL CARBON DIOXIDE 28.7 MMOL/L (24-32); TOTAL PROTEIN 7.3 G/DL (6.4-8.2); TRIGLYCERIDES 346 MG/DL (20-135); eCRCL 104 ML/MIN; eGFR 87 ML/MIN
[2023-09-01] MEDS: ondansetron/PF 4mg/2ml inj IV PRN (07:01)
[2023-09-01] MEDS: K and/or MAG REPLACEMENT MC SCH (08:00)
[2023-09-01] MEDS: pantoprazole 40mg Tablet.DR PO SCH (09:02)
[2023-09-01] MEDS: docusate sod 100mg capsule PO SCH (09:02)
[2023-09-01] MEDS: enoxaparin 40mg/0.4ml syringe SUBCUT SCH (09:03)
[2023-09-01] MEDS: haloperidol 5mg tablet PO PRN (09:03)
[2023-09-01] MEDS: thiamine 100mg/ml 2ml inj. IV SCH (10:00)
[2023-09-01] MEDS: chlordiazePOXIDE 25mg capsule PO SCH (14:25)
[2023-09-01] MEDS ORDERED: traZODone 50mg tablet PO PRN (17:00)
[2023-09-01] MEDS: LORazepam 1 MG tablet PO PRN (17:16)
[2023-09-01] MEDS: prazosin 1mg capsule PO SCH (20:36)
[2023-09-01] MEDS: gabapentin 100mg capsule PO SCH (20:36)
[2023-09-02] VITALS (8 sets, daily range): BP systolic 120–158; BP diastolic 80–111; PULSE 63–87; RESP 16–23; TEMP 97.2–98.8; O2SAT 96–98
[2023-09-02 06:51] LABS: BASOPHILS % (AUTO) 1.1 % (0-1); EOSINOPHILS # (AUTO) 0.2 X10'3 (0-0.9); EOSINOPHILS % (AUTO) 4.7 % (0-6); HEMATOCRIT 37.1 % (42.0-52.0); HEMOGLOBIN 13.2 g/dl (14.0-17.9); LYMPHOCYTES # (AUTO) 1.3 X10'3 (1.1-4.8); LYMPHOCYTES % (AUTO) 31.3 % (21-51); MEAN CORPUSCULAR HEMOGLOBIN 33.2 PG (27.0-31.0); MEAN CORPUSCULAR HGB CONC 35.4 g/dL (33.0-36.5); MEAN CORPUSCULAR VOLUME 93.8 FL (78-98); MEAN PLATELET VOLUME 7.7 FL (7.4-10.4); MONOCYTES # (AUTO) 0.3 X10'3 (0-0.9); MONOCYTES % (AUTO) 7.3 % (2-12); NEUTROPHILS # (AUTO) 2.2 X10'3 (1.8-7.7); NEUTROPHILS % (AUTO) 55.6 % (42-75); PLATELET COUNT 163 X10'3 (140-440); RED BLOOD COUNT 3.96 X10'6 (4.70-6.10); RED CELL DISTRIBUTION WIDTH 12.6 % (11.5-14.5)
[2023-09-02 07:09] LABS: ALANINE AMINOTRANSFERASE 261 U/L (12-78); ALBUMIN 3.3 G/DL (3.4-5.0); ALKALINE PHOSPHATASE 65 IU/L (46-116); ANION GAP 7 (8-16); APTT 24 SECONDS (22-32); ASPARTATE AMINO TRANSFERASE 223 U/L (10-37); BILIRUBIN,TOTAL 0.8 MG/DL (0.1-1.0); BLOOD UREA NITROGEN 10 MG/DL (7-18); BUN/CREATININE RATIO 8.5 (10.0-20.0); CALCIUM 8.6 MG/DL (8.5-10.1); CHLORIDE 104 MMOL/L (99-107); CREATININE 1.17 MG/DL (0.60-1.10); GLUCOSE 107 MG/DL (70-104); LIPASE 87 U/L (16-77); MAGNESIUM 1.8 MG/DL (1.5-2.4); PHOSPHORUS 3.9 MG/DL (2.3-4.5); POTASSIUM 3.8 MMOL/L (3.5-5.1); PROTHROMBIN TIME 10.9 SECONDS (9.0-12.0); SODIUM 137 MMOL/L (135-145); TOTAL CARBON DIOXIDE 26.2 MMOL/L (24-32); TOTAL PROTEIN 6.6 G/DL (6.4-8.2); eCRCL 86 ML/MIN; eGFR 70 ML/MIN
[2023-09-02] MEDS: pantoprazole 40mg Tablet.DR PO SCH (07:40)
[2023-09-02] MEDS: ESCITALOPRAM 10 mg tablet 10 MG TABLET PO SCH (07:40)
[2023-09-02] MEDS: losartan 50mg tablet PO SCH (07:41)
[2023-09-02] MEDS: atenolol 25mg tablet PO SCH (07:41)
[2023-09-02] MEDS ORDERED: LORazepam 2 mg/ml vial IV PRN (22:10)
[2023-09-02] MEDS ORDERED: LORazepam 1 MG tablet PO PRN (22:10)
[2023-09-03] VITALS (8 sets, daily range): BP systolic 110–141; BP diastolic 71–107; PULSE 60–89; RESP 11–24; TEMP 97.6–98.3; O2SAT 95–98
[2023-09-03 07:45] LABS: BASOPHILS % (AUTO) 1.1 % (0-1); EOSINOPHILS # (AUTO) 0.2 X10'3 (0-0.9); EOSINOPHILS % (AUTO) 4.7 % (0-6); HEMOGLOBIN 13.4 g/dl (14.0-17.9); LYMPHOCYTES # (AUTO) 1.7 X10'3 (1.1-4.8); LYMPHOCYTES % (AUTO) 37.8 % (21-51); MEAN CORPUSCULAR HEMOGLOBIN 33.1 PG (27.0-31.0); MEAN CORPUSCULAR HGB CONC 35.2 g/dL (33.0-36.5); MEAN PLATELET VOLUME 7.5 FL (7.4-10.4); MONOCYTES # (AUTO) 0.3 X10'3 (0-0.9); MONOCYTES % (AUTO) 7.6 % (2-12); NEUTROPHILS # (AUTO) 2.1 X10'3 (1.8-7.7); NEUTROPHILS % (AUTO) 48.8 % (42-75); PLATELET COUNT 174 X10'3 (140-440); RED BLOOD COUNT 4.04 X10'6 (4.70-6.10); RED CELL DISTRIBUTION WIDTH 12.9 % (11.5-14.5); WHITE BLOOD COUNT 4.4 X10'3 (4.5-11.0)
[2023-09-03 07:59] LABS: APTT 25 SECONDS (22-32); INR 1.1 INR; PROTHROMBIN TIME 11.2 SECONDS (9.0-12.0)
[2023-09-03 08:00] LABS: ALANINE AMINOTRANSFERASE 278 U/L (12-78); ALBUMIN 3.3 G/DL (3.4-5.0); ALBUMIN/GLOBULIN RATIO 0.9 (1.1-1.5); ALKALINE PHOSPHATASE 68 IU/L (46-116); ANION GAP 7 (8-16); ASPARTATE AMINO TRANSFERASE 205 U/L (10-37); BILIRUBIN,TOTAL 0.6 MG/DL (0.1-1.0); BLOOD UREA NITROGEN 11 MG/DL (7-18); BUN/CREATININE RATIO 10.4 (10.0-20.0); CALCIUM 8.8 MG/DL (8.5-10.1); CHLORIDE 105 MMOL/L (99-107); CREATININE 1.06 MG/DL (0.60-1.10); GLUCOSE 97 MG/DL (70-104); MAGNESIUM 1.9 MG/DL (1.5-2.4); PHOSPHORUS 4.8 MG/DL (2.3-4.5); POTASSIUM 3.7 MMOL/L (3.5-5.1); SODIUM 139 MMOL/L (135-145); TOTAL CARBON DIOXIDE 27.2 MMOL/L (24-32); TOTAL PROTEIN 6.8 G/DL (6.4-8.2); eCRCL 95 ML/MIN; eGFR 79 ML/MIN
[2023-09-03] MEDS: losartan 25mg tablet PO SCH (08:59)
[2023-09-03] MEDS ORDERED: DEXT5CAP PO (10:16)
[2023-09-03] MEDS ORDERED: LORazepam 1 MG tablet PO PRN (20:10)
[2023-09-03] MEDS: ESCITALOPRAM 10 mg tablet 10 MG TABLET PO SCH (21:03)
[2023-09-04] VITALS (8 sets, daily range): BP systolic 110–140; BP diastolic 60–98; PULSE 62–86; RESP 13–24; TEMP 97.8–98.6; O2SAT 92–97
[2023-09-04 06:57] LABS: PROTHROMBIN TIME 10.9 SECONDS (9.0-12.0)
[2023-09-04 07:00] LABS: BASOPHILS # (AUTO) 0.1 X10'3 (0-0.2); BASOPHILS % (AUTO) 1.2 % (0-1); EOSINOPHILS # (AUTO) 0.2 X10'3 (0-0.9); EOSINOPHILS % (AUTO) 4.6 % (0-6); LYMPHOCYTES # (AUTO) 1.5 X10'3 (1.1-4.8); LYMPHOCYTES % (AUTO) 32.6 % (21-51); MONOCYTES # (AUTO) 0.4 X10'3 (0-0.9); MONOCYTES % (AUTO) 7.5 % (2-12); NEUTROPHILS # (AUTO) 2.6 X10'3 (1.8-7.7); NEUTROPHILS % (AUTO) 54.1 % (42-75); WHITE BLOOD COUNT 4.7 X10'3 (4.5-11.0)
[2023-09-04 07:01] LABS: ALANINE AMINOTRANSFERASE 260 U/L (12-78); ALBUMIN 3.5 G/DL (3.4-5.0); ALBUMIN/GLOBULIN RATIO 0.9 (1.1-1.5); ALKALINE PHOSPHATASE 65 IU/L (46-116); ANION GAP 11 (8-16); ASPARTATE AMINO TRANSFERASE 203 U/L (10-37); BILIRUBIN,TOTAL 0.6 MG/DL (0.1-1.0); BLOOD UREA NITROGEN 12 MG/DL (7-18); BUN/CREATININE RATIO 10.8 (10.0-20.0); CALCIUM 9.3 MG/DL (8.5-10.1); CHLORIDE 101 MMOL/L (99-107); CREATININE 1.11 MG/DL (0.60-1.10); GLUCOSE 105 MG/DL (70-104); LIPASE 119 U/L (16-77); MAGNESIUM 2.2 MG/DL (1.5-2.4); PHOSPHORUS 5.2 MG/DL (2.3-4.5); POTASSIUM 3.8 MMOL/L (3.5-5.1); SODIUM 136 MMOL/L (135-145); TOTAL CARBON DIOXIDE 23.9 MMOL/L (24-32); TOTAL PROTEIN 7.2 G/DL (6.4-8.2); eCRCL 91 ML/MIN; eGFR 75 ML/MIN
[2023-09-04 07:45] LABS: HEMATOCRIT 39.9 % (42.0-52.0); HEMOGLOBIN 13.9 g/dl (14.0-17.9); MEAN CORPUSCULAR HEMOGLOBIN 32.9 PG (27.0-31.0); MEAN CORPUSCULAR HGB CONC 34.8 g/dL (33.0-36.5); MEAN CORPUSCULAR VOLUME 94.6 FL (78-98); MEAN PLATELET VOLUME 7.6 FL (7.4-10.4); PLATELET COUNT 193 X10'3 (140-440); RED BLOOD COUNT 4.22 X10'6 (4.70-6.10); RED CELL DISTRIBUTION WIDTH 13.1 % (11.5-14.5)
[2023-09-04 07:52] LABS: PLATELET ESTIMATE NORMAL; POIKILOCYTOSIS FEW; POLYCHROMASIA FEW
[2023-09-04] MEDS: temazepam 15mg capsule PO PRN (20:55)
[2023-09-04] MEDS ORDERED: LORazepam 2 mg/ml vial IV PRN (22:10)
[2023-09-04] MEDS ORDERED: LORazepam 1 MG tablet PO PRN (22:10)
[2023-09-05 01:15] VITALS: BP 138/88; RESP 16; TEMP 97; O2SAT 94
[2023-09-05 06:44] LABS: ALANINE AMINOTRANSFERASE 255 U/L (12-78); ALBUMIN 3.8 G/DL (3.4-5.0); ALKALINE PHOSPHATASE 59 IU/L (46-116); ANION GAP 10 (8-16); ASPARTATE AMINO TRANSFERASE 190 U/L (10-37); BASOPHILS # (AUTO) 0.1 X10'3 (0-0.2); BASOPHILS % (AUTO) 1.1 % (0-1); BILIRUBIN,TOTAL 0.5 MG/DL (0.1-1.0); BLOOD UREA NITROGEN 16 MG/DL (7-18); BUN/CREATININE RATIO 13.1 (10.0-20.0); CHLORIDE 103 MMOL/L (99-107); CREATININE 1.22 MG/DL (0.60-1.10); EOSINOPHILS # (AUTO) 0.2 X10'3 (0-0.9); EOSINOPHILS % (AUTO) 4.5 % (0-6); GLUCOSE 104 MG/DL (70-104); HEMATOCRIT 39.3 % (42.0-52.0); HEMOGLOBIN 13.8 g/dl (14.0-17.9); LIPASE 97 U/L (16-77); LYMPHOCYTES # (AUTO) 1.6 X10'3 (1.1-4.8); LYMPHOCYTES % (AUTO) 31.2 % (21-51); MAGNESIUM 2.4 MG/DL (1.5-2.4); MEAN CORPUSCULAR HEMOGLOBIN 33.3 PG (27.0-31.0); MEAN CORPUSCULAR HGB CONC 35.1 g/dL (33.0-36.5); MEAN CORPUSCULAR VOLUME 94.9 FL (78-98); MEAN PLATELET VOLUME 7.4 FL (7.4-10.4); MONOCYTES # (AUTO) 0.4 X10'3 (0-0.9); MONOCYTES % (AUTO) 7.7 % (2-12); NEUTROPHILS # (AUTO) 2.8 X10'3 (1.8-7.7); NEUTROPHILS % (AUTO) 55.5 % (42-75); PHOSPHORUS 4.3 MG/DL (2.3-4.5); PLATELET COUNT 211 X10'3 (140-440); POTASSIUM 3.7 MMOL/L (3.5-5.1); RED BLOOD COUNT 4.15 X10'6 (4.70-6.10); RED CELL DISTRIBUTION WIDTH 12.9 % (11.5-14.5); SODIUM 137 MMOL/L (135-145); TOTAL CARBON DIOXIDE 24.2 MMOL/L (24-32); TOTAL PROTEIN 7.5 G/DL (6.4-8.2); WHITE BLOOD COUNT 5.1 X10'3 (4.5-11.0); eCRCL 83 ML/MIN; eGFR 67 ML/MIN
[2023-09-05 06:49] LABS: PROTHROMBIN TIME 10.9 SECONDS (9.0-12.0)
[2023-09-05 07:00] VITALS: BP 107/77; PULSE 56; RESP 20; TEMP 97.6; O2SAT 97
[2023-09-05 07:41] VITALS: PULSE 67; RESP 14; O2SAT 97
[2023-09-05 08:00] VITALS: RESP 14; O2SAT 95
[2023-09-05] MEDS: folic acid 1mg tablet PO SCH (08:01)
[2023-09-05] MEDS: thiamine 100mg tablet PO SCH (08:01)
[2023-09-05 10:33] VITALS: RESP 14; O2SAT 95
[2023-09-05 10:43] VITALS: BP 110/81; PULSE 59; RESP 14; TEMP 98.1; O2SAT 95
[2023-09-05] MEDS ORDERED: CHLO25CA10 PO (12:25)
[2023-09-05] MEDS ORDERED: ACAM333T8 PO (12:26)
[2023-09-05] MEDS: chlordiazePOXIDE 25mg capsule PO SCH (13:44)
== END 2023-09-05 13:50 | disposition home or self-care (01) | DRG 282 ==
LOC: ER 17:19 → ED HOLD 09-01 00:51 → PCU 3S 09-01 08:15
PROVIDERS: ADMIT Student in an Organized Health Care Education/Training Program; ATTEND Family Medicine
DX: K85.90 Acute pancreatitis without necrosis or infection, unspecified (principal); F10.231 Alcohol dependence with withdrawal delirium; I42.0 Dilated cardiomyopathy; K70.9 Alcoholic liver disease, unspecified; R07.89 Other chest pain; F41.9 Anxiety disorder, unspecified; F32.A Depression, unspecified; E87.6 Hypokalemia; Z88.5 Allergy status to narcotic agent; Z79.899 Other long term (current) drug therapy; Z91.030 Bee allergy status
CPT/HCPCS: 36415; 76700; 80053; 80061; 80305; 80320; 81001; 83690; 83735; 83880; 84100; 84132; 84484; 85008; 85025; 85610; 85730; 87081; 93005; 93308; 94660; 94760; 97116; 97161; 97530; 99285; A6258; G0378; J1650; J2405; J2560; J3411; J3490; J7030

== ENCOUNTER 2024-01-08 09:25 | Inpatient (IN) | payer MEDICAID ==
[~2024-01-08] VITALS: Ht 175.3 cm; Wt 90.4 kg
[~2024-01-08 09:25] MED LIST changes: +ACAM333T8 PO; +CHLO25CA10 PO; +DEXT5CAP PO
[2024-01-08 09:56] LABS: EOSINOPHILS # (AUTO) 0.1 X10'3 (0-0.9); EOSINOPHILS % (AUTO) 0.5 % (0-6); MONOCYTES # (AUTO) 0.6 X10'3 (0-0.9)
[2024-01-08 09:57] LABS: BASOPHILS % (AUTO) 0.3 % (0-1); LYMPHOCYTES # (AUTO) 1.2 X10'3 (1.1-4.8); LYMPHOCYTES % (AUTO) 11.5 % (21-51); MEAN PLATELET VOLUME 7.6 FL (7.4-10.4); MONOCYTES % (AUTO) 5.5 % (2-12); NEUTROPHILS # (AUTO) 8.9 X10'3 (1.8-7.7); NEUTROPHILS % (AUTO) 82.2 % (42-75); PLATELET COUNT 249 X10'3 (140-440); WHITE BLOOD COUNT 10.8 X10'3 (4.5-11.0)
[2024-01-08 09:58] LABS: ALANINE AMINOTRANSFERASE 153 U/L (12-78); ALBUMIN 4.6 G/DL (3.4-5.0); ALBUMIN/GLOBULIN RATIO 1.2 (1.1-1.5); ALKALINE PHOSPHATASE 76 IU/L (46-116); ANION GAP 10 (8-16); ASPARTATE AMINO TRANSFERASE 101 U/L (10-37); BILIRUBIN,TOTAL 2.7 MG/DL (0.1-1.0); BLOOD UREA NITROGEN 20 MG/DL (7-18); BUN/CREATININE RATIO 13.6 (10.0-20.0); CALCIUM 9.6 MG/DL (8.5-10.1); CHLORIDE 98 MMOL/L (99-107); CREATININE 1.47 MG/DL (0.60-1.10); GLUCOSE 156 MG/DL (70-104); POTASSIUM 3.9 MMOL/L (3.5-5.1); SODIUM 135 MMOL/L (135-145); TOTAL PROTEIN 8.6 G/DL (6.4-8.2); eCRCL 68 ML/MIN; eGFR 54 ML/MIN
[2024-01-08] MEDS: normal saline 1000ML IV soln IVB ONE ×2 (10:01→11:03)
[2024-01-08] MEDS: ondansetron/PF 4mg/2ml inj IV ONE (10:03)
[2024-01-08] MEDS: morphine 4 MG/ML inj SYRINge IV ONE (10:03)
[2024-01-08 10:07] LABS: HEMATOCRIT 57.8 % (42.0-52.0); MEAN CORPUSCULAR HEMOGLOBIN 32.2 PG (27.0-31.0); MEAN CORPUSCULAR VOLUME 94.7 FL (78-98); PRO BRAIN NATRIURETIC PEPTIDE 75 PG/ML (0-125)
[2024-01-08 10:09] LABS: HEMOGLOBIN 19.6 g/dl (14.0-17.9)
[2024-01-08 10:14] LABS: CLARITY,URINE SLIGHTLY CLOUDY (Clear); COLOR,URINE AMBER (Yellow)
[2024-01-08 10:15] LABS: LIPASE > 375 U/L (16-77)
[2024-01-08 10:20] LABS: UA COLLECTION TYPE CLN CATCH MIDSTREAM
[2024-01-08 10:21] LABS: AMORPHOUS URATES 1+; BACTERIA,URINE FEW /HPF (Neg); FINE GRANULAR CAST 0-3 /LPF (NEGATIVE); HYALINE CASTS 0-3 /LPF (NEGATIVE); MUCUS STRANDS MANY /LPF (Neg); RBC,URINE 0-2 /HPF (0-2); SQUAMOUS EPITHELIAL CELL,UR FEW /LPF (FEW); WBC,URINE 0-4 /HPF (0-4)
[2024-01-08] MEDS: morphine 10mg/ml inj. IV ONE (11:23)
[2024-01-08] MEDS ORDERED: ESCI20TA39 PO (11:24)
[2024-01-08] MEDS ORDERED: TRAZ-256 PO (11:25)
[2024-01-08] MEDS ORDERED: PRAZ1CAP5 PO (11:26)
[2024-01-08] MEDS ORDERED: potassium Cl 20 mEq SR tablet PO PRN ×2 (11:30)
[2024-01-08] MEDS ORDERED: acetaminophen 325mg tablet PO PRN ×2 (11:30)
[2024-01-08] MEDS ORDERED: ondansetron/PF 4mg/2ml inj IV PRN (11:30)
[2024-01-08] MEDS ORDERED: magnesium sulf-water 2g/50mL 50 ML IV PRN (11:30)
[2024-01-08] MEDS ORDERED: magnesium sulf-water 4G/100mL 100 ML IV PRN (11:30)
[2024-01-08] MEDS ORDERED: potassium Cl 40MEQ/1/2NS 520ml 520 ML IV PRN (11:30)
[2024-01-08] MEDS ORDERED: magnesium Cl slow-release 64mg tablet PO PRN (11:30)
[2024-01-08] MEDS ORDERED: AMLO10TA13 PO (11:32)
[2024-01-08] MEDS ORDERED: haloperidol lactate 5mg/ml inj IM PRN (11:35)
[2024-01-08] MEDS ORDERED: haloperidol 5mg tablet PO PRN (11:35)
[2024-01-08] MEDS ORDERED: GABA300C PO (11:38)
[2024-01-08] MEDS ORDERED: HYDR-3686 PO (11:43)
[2024-01-08] MEDS ORDERED: LOSA50TA64 PO (11:45)
[2024-01-08 11:47] LABS: URINE AMPHETAMINE SCREEN NEGATIVE (Neg); URINE BARBITUATE SCREEN NEGATIVE (Neg); URINE BENZODIAZEPINES SCREEN NEGATIVE (Neg); URINE CANNABINOID SCREEN POSITIVE (Neg); URINE COCAINE SCREEN NEGATIVE (Neg); URINE METHADONE SCREEN NEGATIVE (Neg); URINE OPIATE SCREEN NEGATIVE (Neg); URINE PHENCYCLIDINE SCREEN NEGATIVE (Neg)
[2024-01-08] MEDS: normal saline 1000ml 1,000 ML IV SCH (12:03)
[2024-01-08] MEDS: folic acid 1mg/0.2ml inj IV SCH (12:12)
[2024-01-08] MEDS: thiamine 100mg/ml 2ml inj. IV SCH (12:13)
[2024-01-08] MEDS: LORazepam 2 mg/ml vial IV PRN (12:20)
[2024-01-08] MEDS: morphine 2 MG/ML inj. syringe IV PRN (12:21)
[2024-01-08] MEDS: HYDROcodone/acetaminophen 10/325mg tab PO PRN (14:30)
[2024-01-08 18:00] VITALS: BP 146/102; PULSE 92; RESP 17; TEMP 97.5; O2SAT 96
[2024-01-08] MEDS: heparin, porcine 5000 units/ml vial SQ SCH (19:53)
[2024-01-08] MEDS: gabapentin 300mg capsule PO SCH (20:00)
[2024-01-08] MEDS: traZODone 50mg tablet PO SCH (20:00)
[2024-01-08] MEDS: hydrOXYzine 25 MG tablet PO SCH (20:01)
[2024-01-08] MEDS: prazosin 1mg capsule PO SCH (21:00)
[2024-01-09] VITALS (11 sets, daily range): BP systolic 112–145; BP diastolic 71–93; PULSE 80–116; RESP 18–22; TEMP 97.2–98.6; O2SAT 90–97
[2024-01-09 06:16] LABS: BASOPHILS % (AUTO) 0.2 % (0-1); EOSINOPHILS # (AUTO) 0.1 X10'3 (0-0.9); EOSINOPHILS % (AUTO) 1.4 % (0-6); HEMATOCRIT 40.8 % (42.0-52.0); HEMOGLOBIN 14.5 g/dl (14.0-17.9); LYMPHOCYTES # (AUTO) 1.1 X10'3 (1.1-4.8); LYMPHOCYTES % (AUTO) 14.2 % (21-51); MEAN CORPUSCULAR HEMOGLOBIN 32.5 PG (27.0-31.0); MEAN CORPUSCULAR HGB CONC 35.5 g/dL (33.0-36.5); MEAN CORPUSCULAR VOLUME 91.4 FL (78-98); MEAN PLATELET VOLUME 7.4 FL (7.4-10.4); MONOCYTES # (AUTO) 0.4 X10'3 (0-0.9); MONOCYTES % (AUTO) 5.4 % (2-12); NEUTROPHILS # (AUTO) 6.3 X10'3 (1.8-7.7); NEUTROPHILS % (AUTO) 78.8 % (42-75); PLATELET COUNT 139 X10'3 (140-440); RED BLOOD COUNT 4.46 X10'6 (4.70-6.10); RED CELL DISTRIBUTION WIDTH 13.3 % (11.5-14.5); WHITE BLOOD COUNT 7.9 X10'3 (4.5-11.0)
[2024-01-09 06:36] LABS: ALANINE AMINOTRANSFERASE 96 U/L (12-78); ALBUMIN 3.2 G/DL (3.4-5.0); ALKALINE PHOSPHATASE 52 IU/L (46-116); ANION GAP 8 (8-16); ASPARTATE AMINO TRANSFERASE 59 U/L (10-37); BILIRUBIN,TOTAL 1.9 MG/DL (0.1-1.0); BLOOD UREA NITROGEN 9 MG/DL (7-18); BUN/CREATININE RATIO 9.5 (10.0-20.0); CHLORIDE 104 MMOL/L (99-107); CREATININE 0.95 MG/DL (0.60-1.10); GLUCOSE 116 MG/DL (70-104); PHOSPHORUS 2.4 MG/DL (2.3-4.5); POTASSIUM 3.5 MMOL/L (3.5-5.1); SODIUM 136 MMOL/L (135-145); TOTAL CARBON DIOXIDE 24.4 MMOL/L (24-32); TOTAL PROTEIN 6.4 G/DL (6.4-8.2); eCRCL 105 ML/MIN; eGFR 89 ML/MIN
[2024-01-09 06:51] LABS: LIPASE > 375 U/L (16-77)
[2024-01-09 07:01] LABS: CALCIUM 7.7 MG/DL (8.5-10.1)
[2024-01-09] MEDS: amLODIPine 5mg tablet PO SCH (08:08)
[2024-01-09] MEDS: losartan 50mg tablet PO SCH (08:08)
[2024-01-09] MEDS: ESCITALOPRAM 10 mg tablet 10 MG TABLET PO SCH (08:09)
[2024-01-09] MEDS: HYDROcodone/acetaminophen 5mg/325mg tablet PO PRN (08:43)
[2024-01-09 09:22] LABS: APTT 27 SECONDS (22-32); PROTHROMBIN TIME 10.9 SECONDS (9.0-12.0)
[2024-01-09] MEDS: morphine 2 MG/ML inj. syringe IV PRN (12:30)
[2024-01-09] MEDS: pantoprazole 40 MG vial IV SCH (12:34)
[2024-01-10 02:00] VITALS: BP 143/103; PULSE 92; RESP 21; TEMP 99.9; O2SAT 97
[2024-01-10 06:00] VITALS: BP 117/70; PULSE 95; RESP 15; TEMP 98.3; O2SAT 93
[2024-01-10 06:54] LABS: BASOPHILS % (AUTO) 0.7 % (0-1); EOSINOPHILS # (AUTO) 0.2 X10'3 (0-0.9); EOSINOPHILS % (AUTO) 3.9 % (0-6); HEMATOCRIT 39.2 % (42.0-52.0); HEMOGLOBIN 13.8 g/dl (14.0-17.9); LYMPHOCYTES # (AUTO) 1.4 X10'3 (1.1-4.8); LYMPHOCYTES % (AUTO) 22.2 % (21-51); MEAN CORPUSCULAR HEMOGLOBIN 32.4 PG (27.0-31.0); MEAN CORPUSCULAR HGB CONC 35.2 g/dL (33.0-36.5); MEAN CORPUSCULAR VOLUME 92.2 FL (78-98); MEAN PLATELET VOLUME 7.5 FL (7.4-10.4); MONOCYTES # (AUTO) 0.4 X10'3 (0-0.9); MONOCYTES % (AUTO) 6.7 % (2-12); NEUTROPHILS # (AUTO) 4.2 X10'3 (1.8-7.7); NEUTROPHILS % (AUTO) 66.5 % (42-75); PLATELET COUNT 125 X10'3 (140-440); RED BLOOD COUNT 4.26 X10'6 (4.70-6.10); RED CELL DISTRIBUTION WIDTH 13.4 % (11.5-14.5); WHITE BLOOD COUNT 6.3 X10'3 (4.5-11.0)
[2024-01-10 07:20] LABS: ALANINE AMINOTRANSFERASE 83 U/L (12-78); ALBUMIN/GLOBULIN RATIO 0.9 (1.1-1.5); ALKALINE PHOSPHATASE 42 IU/L (46-116); ANION GAP 7 (8-16); ASPARTATE AMINO TRANSFERASE 57 U/L (10-37); BILIRUBIN,TOTAL 1.5 MG/DL (0.1-1.0); BLOOD UREA NITROGEN 6 MG/DL (7-18); BUN/CREATININE RATIO 6.3 (10.0-20.0); CALCIUM 7.9 MG/DL (8.5-10.1); CHLORIDE 104 MMOL/L (99-107); CREATININE 0.95 MG/DL (0.60-1.10); GLUCOSE 90 MG/DL (70-104); LIPASE 153 U/L (16-77); MAGNESIUM 2.1 MG/DL (1.5-2.4); POTASSIUM 3.3 MMOL/L (3.5-5.1); SODIUM 136 MMOL/L (135-145); TOTAL CARBON DIOXIDE 24.7 MMOL/L (24-32); TOTAL PROTEIN 6.2 G/DL (6.4-8.2); eCRCL 105 ML/MIN; eGFR 89 ML/MIN
[2024-01-10 08:00] VITALS: RESP 15; O2SAT 92
[2024-01-10 08:12] LABS: CHOL/HDL RATIO 3.6 (0.00-4.99); CHOLESTEROL 126 MG/DL (0-200); HDL CHOLESTEROL 35 MG/DL (35-60); LDL CHOLESTEROL 69 MG/DL (50-100); TRIGLYCERIDES 170 MG/DL (20-135)
[2024-01-10 11:00] VITALS: BP 139/98; PULSE 104; RESP 16; TEMP 98.2; O2SAT 94
[2024-01-10] MEDS ORDERED: LORA-269 PO (12:30)
[2024-01-10] MEDS ORDERED: HYDR-3965 PO (12:30)
== END 2024-01-10 13:20 | disposition home or self-care (01) | DRG 282 ==
LOC: ER 09:25 → ED HOLD 11:37 → PCU 3S 15:30
PROVIDERS: ADMIT Internal Medicine; ATTEND Internal Medicine
DX: K85.20 Alcohol induced acute pancreatitis without necrosis or infection (principal); I42.9 Cardiomyopathy, unspecified; N17.9 Acute kidney failure, unspecified; K76.0 Fatty (change of) liver, not elsewhere classified; Z99.81 Dependence on supplemental oxygen; E86.0 Dehydration; I10 Essential (primary) hypertension; F10.10 Alcohol abuse, uncomplicated; D75.1 Secondary polycythemia; G47.33 Obstructive sleep apnea (adult) (pediatric); R16.0 Hepatomegaly, not elsewhere classified; R74.01 Elevation of levels of liver transaminase levels; F17.200 Nicotine dependence, unspecified, uncomplicated; Z88.5 Allergy status to narcotic agent; Z79.899 Other long term (current) drug therapy
CPT/HCPCS: 36415; 76700; 80053; 80061; 80305; 80320; 81001; 83605; 83690; 83735; 83880; 84100; 84484; 85025; 85610; 85730; 87040; 93005; 94760; 96374; 96375; 96376; 97161; 97530; 99285; G0378; J1644; J2060; J2270; J2274; J2405; J2470; J3411; J3490; J7030; Q0177

== ENCOUNTER 2024-03-16 09:49 | Inpatient (IN) | payer BC, MEDICAID ==
[~2024-03-16] VITALS: Ht 175.3 cm; Wt 87.0 kg
[~2024-03-16 09:49] MED LIST changes: -ACAM333T8 PO; +AMLO10TA13 PO; -ATEN-168 PO; -CHLO25CA10 PO; -DEXT5CAP PO; -ESCI-8 PO; +ESCI20TA39 PO; -FOLI1TAB27 PO; -GABA-530 PO; +GABA300C PO; +LORA-269 PO; -MULT-25 PO; -NOR5T PO; -OMEP20CA16 PO; -TRAZ-251 PO; +TRAZ-256 PO; -thiamine tablet PO
[2024-03-16 10:41] LABS: BASOPHILS % (AUTO) 0.3 % (0-1); EOSINOPHILS % (AUTO) 0.1 % (0-6); HEMOGLOBIN 17.1 g/dl (14.0-17.9); LYMPHOCYTES # (AUTO) 0.7 X10'3 (1.1-4.8); LYMPHOCYTES % (AUTO) 6.3 % (21-51); MEAN CORPUSCULAR HEMOGLOBIN 32.4 PG (27.0-31.0); MEAN CORPUSCULAR HGB CONC 35.6 g/dL (33.0-36.5); MEAN PLATELET VOLUME 6.8 FL (7.4-10.4); MONOCYTES # (AUTO) 0.3 X10'3 (0-0.9); MONOCYTES % (AUTO) 3.2 % (2-12); NEUTROPHILS # (AUTO) 9.7 X10'3 (1.8-7.7); NEUTROPHILS % (AUTO) 90.1 % (42-75); PLATELET COUNT 218 X10'3 (140-440); RED BLOOD COUNT 5.27 X10'6 (4.70-6.10); RED CELL DISTRIBUTION WIDTH 12.7 % (11.5-14.5); WHITE BLOOD COUNT 10.8 X10'3 (4.5-11.0)
[2024-03-16 10:51] LABS: ALANINE AMINOTRANSFERASE 112 U/L (12-78); ALBUMIN 4.2 G/DL (3.4-5.0); ALBUMIN/GLOBULIN RATIO 1.1 (1.1-1.5); ALKALINE PHOSPHATASE 70 IU/L (46-116); ANION GAP 13 (8-16); ASPARTATE AMINO TRANSFERASE 94 U/L (10-37); BILIRUBIN,TOTAL 2.4 MG/DL (0.1-1.0); BLOOD UREA NITROGEN 14 MG/DL (7-18); BUN/CREATININE RATIO 11.9 (10.0-20.0); CALCIUM 9.7 MG/DL (8.5-10.1); CHLORIDE 97 MMOL/L (99-107); CREATININE 1.18 MG/DL (0.60-1.10); GLUCOSE 145 MG/DL (70-104); POTASSIUM 3.6 MMOL/L (3.5-5.1); SODIUM 135 MMOL/L (135-145); TOTAL CARBON DIOXIDE 25.4 MMOL/L (24-32); eCRCL 85 ML/MIN; eGFR 69 ML/MIN
[2024-03-16 10:58] LABS: PRO BRAIN NATRIURETIC PEPTIDE 55 PG/ML (0-125)
[2024-03-16 11:43] LABS: LIPASE > 375 U/L (16-77)
[2024-03-16] MEDS: HYDROcodone/acetaminophen 5mg/325mg tablet PO ONE (11:52)
[2024-03-16] MEDS: HYDROmorphone inj. 0.5 MG/0.5 ML DISP.SYRIN IV ONE (14:16)
[2024-03-16] MEDS ORDERED: acetaminophen 325mg tablet PO PRN (15:05)
[2024-03-16] MEDS ORDERED: magnesium sulf-water 4G/100mL 100 ML IV PRN (15:05)
[2024-03-16] MEDS ORDERED: potassium Cl 40MEQ/1/2NS 520ml 520 ML IV PRN (15:05)
[2024-03-16] MEDS ORDERED: potassium Cl 20 mEq SR tablet PO PRN (15:05)
[2024-03-16] MEDS ORDERED: magnesium sulf-water 2g/50mL 50 ML IV PRN (15:05)
[2024-03-16] MEDS ORDERED: magnesium hydroxide 30ml (MOM) UD suspension PO PRN (15:05)
[2024-03-16] MEDS ORDERED: mag hydrox/Alum hydrox/simeth 30ml oral suspension PO PRN (15:05)
[2024-03-16] MEDS: normal saline 1000ml 1,000 ML IV SCH (15:36)
[2024-03-16] MEDS: LORazepam 2 mg/ml vial IV PRN (15:36)
[2024-03-16] MEDS: HYDROmorphone inj. 0.5 MG/0.5 ML DISP.SYRIN IV PRN (16:49)
[2024-03-16] MEDS ORDERED: CLON0.1T2 PO (17:02)
[2024-03-16] MEDS ORDERED: DEXT5CAP PO (17:02)
[2024-03-16] MEDS ORDERED: ACAM333T8 PO (17:02)
[2024-03-16] MEDS ORDERED: NALT50TA5 PO (17:02)
[2024-03-16] MEDS: HYDROmorphone/PF 0.2 MG/ML SYRINGE IV PRN (18:54)
[2024-03-16] MEDS: K and/or MAG REPLACEMENT MC SCH (19:04)
[2024-03-16] MEDS: docusate sod 100mg capsule PO SCH (19:25)
[2024-03-16] MEDS: thiamine 100mg tablet PO SCH (19:25)
[2024-03-16] MEDS: ondansetron/PF 4mg/2ml inj IV PRN (21:02)
[2024-03-16] MEDS: ketorolac trometh 30MG/ML vial 30 MG/ML VIAL IV ONE (21:42)
[2024-03-16] MEDS ORDERED: cloNIDine 0.1 mg tablet PO PRN (21:50)
[2024-03-16] MEDS ORDERED: pantoprazole 40 MG vial IV SCH (21:55)
[2024-03-16] MEDS ORDERED: prazosin 1mg capsule PO SCH (21:55)
[2024-03-16] MEDS ORDERED: traZODone 50mg tablet PO SCH (21:57)
[2024-03-16] MEDS: traZODone 50mg tablet PO SCH (22:27)
[2024-03-16] MEDS: prazosin 1mg capsule PO SCH (22:27)
[2024-03-16] MEDS: pantoprazole 40 MG vial IV SCH (22:27)
[2024-03-16 22:49] VITALS: PULSE 97; RESP 16; O2SAT 94
[2024-03-17] VITALS (12 sets, daily range): BP systolic 119–128; BP diastolic 80–91; PULSE 90–111; RESP 13–20; TEMP 97.5–98.5; O2SAT 94–99
[2024-03-17] MEDS: ACAMPROSATE CALCIUM 333 MG PO SCH
[2024-03-17 03:41] LABS: PROTHROMBIN TIME 10.9 SECONDS (9.0-12.0)
[2024-03-17] MEDS: ketorolac trometh 30MG/ML vial 30 MG/ML VIAL IV ONE (03:45)
[2024-03-17 04:25] LABS: ALANINE AMINOTRANSFERASE 87 U/L (12-78); ALBUMIN 3.7 G/DL (3.4-5.0); ALBUMIN/GLOBULIN RATIO 1.1 (1.1-1.5); ALKALINE PHOSPHATASE 60 IU/L (46-116); ANION GAP 11 (8-16); ASPARTATE AMINO TRANSFERASE 73 U/L (10-37); BILIRUBIN,TOTAL 2.2 MG/DL (0.1-1.0); BLOOD UREA NITROGEN 17 MG/DL (7-18); CALCIUM 8.5 MG/DL (8.5-10.1); CHLORIDE 101 MMOL/L (99-107); CREATININE 1.13 MG/DL (0.60-1.10); GLUCOSE 142 MG/DL (70-104); PHOSPHORUS 4.4 MG/DL (2.3-4.5); POTASSIUM 3.8 MMOL/L (3.5-5.1); SODIUM 136 MMOL/L (135-145); TOTAL CARBON DIOXIDE 24.2 MMOL/L (24-32); TOTAL PROTEIN 7.1 G/DL (6.4-8.2); eCRCL 89 ML/MIN; eGFR 73 ML/MIN
[2024-03-17 04:27] LABS: LIPASE > 375 U/L (16-77)
[2024-03-17] MEDS: gabapentin 300mg capsule PO SCH (07:55)
[2024-03-17] MEDS: naltrexone 50mg tablet PO SCH (07:55)
[2024-03-17] MEDS: losartan 50mg tablet PO SCH (07:55)
[2024-03-17 07:56] LABS: BASOPHILS % (AUTO) 0.2 % (0-1); EOSINOPHILS % (AUTO) 0.3 % (0-6); HEMOGLOBIN 16.1 g/dl (14.0-17.9); LYMPHOCYTES # (AUTO) 0.8 X10'3 (1.1-4.8); MEAN CORPUSCULAR HEMOGLOBIN 32.7 PG (27.0-31.0); MEAN CORPUSCULAR HGB CONC 35.7 g/dL (33.0-36.5); MEAN CORPUSCULAR VOLUME 91.7 FL (78-98); MEAN PLATELET VOLUME 7.3 FL (7.4-10.4); MONOCYTES # (AUTO) 0.4 X10'3 (0-0.9); MONOCYTES % (AUTO) 4.2 % (2-12); NEUTROPHILS # (AUTO) 7.2 X10'3 (1.8-7.7); NEUTROPHILS % (AUTO) 85.3 % (42-75); PLATELET COUNT 174 X10'3 (140-440); RED BLOOD COUNT 4.91 X10'6 (4.70-6.10); RED CELL DISTRIBUTION WIDTH 13.1 % (11.5-14.5); WHITE BLOOD COUNT 8.4 X10'3 (4.5-11.0)
[2024-03-17] MEDS: ESCITALOPRAM 10 mg tablet 10 MG TABLET PO SCH (07:56)
[2024-03-17] MEDS: amLODIPine 5mg tablet PO SCH (07:57)
[2024-03-17] MEDS: multivitamins, therapeutics tablet PO SCH (07:57)
[2024-03-17] MEDS: PERFLUTREN PROTEIN-A MICROSPHR (Optison) 0.22 MG/ML 3ML VIAL IV ONE (14:35)
[2024-03-18] VITALS (7 sets, daily range): BP systolic 111–146; BP diastolic 73–83; PULSE 97–109; RESP 16–18; TEMP 98.2–99.9; O2SAT 94–100
[2024-03-18 07:58] LABS: BASOPHILS % (AUTO) 0.4 % (0-1); EOSINOPHILS # (AUTO) 0.2 X10'3 (0-0.9); EOSINOPHILS % (AUTO) 1.9 % (0-6); HEMOGLOBIN 13.6 g/dl (14.0-17.9); MEAN CORPUSCULAR HEMOGLOBIN 32.9 PG (27.0-31.0); MEAN CORPUSCULAR HGB CONC 35.8 g/dL (33.0-36.5); MEAN PLATELET VOLUME 7.3 FL (7.4-10.4); MONOCYTES # (AUTO) 0.5 X10'3 (0-0.9); MONOCYTES % (AUTO) 5.7 % (2-12); NEUTROPHILS # (AUTO) 7.5 X10'3 (1.8-7.7); PLATELET COUNT 153 X10'3 (140-440); RED BLOOD COUNT 4.13 X10'6 (4.70-6.10); RED CELL DISTRIBUTION WIDTH 12.9 % (11.5-14.5); WHITE BLOOD COUNT 9.2 X10'3 (4.5-11.0)
[2024-03-18 08:03] LABS: INR 1.1 INR; PROTHROMBIN TIME 11.1 SECONDS (9.0-12.0)
[2024-03-18] MEDS: hydrOXYzine 25 MG tablet PO PRN (08:10)
[2024-03-18 08:57] LABS: ALANINE AMINOTRANSFERASE 53 U/L (12-78); ALBUMIN 2.8 G/DL (3.4-5.0); ALBUMIN/GLOBULIN RATIO 0.8 (1.1-1.5); ALKALINE PHOSPHATASE 48 IU/L (46-116); ANION GAP 8 (8-16); ASPARTATE AMINO TRANSFERASE 36 U/L (10-37); BILIRUBIN,TOTAL 1.6 MG/DL (0.1-1.0); BLOOD UREA NITROGEN 10 MG/DL (7-18); BUN/CREATININE RATIO 9.7 (10.0-20.0); CALCIUM 7.1 MG/DL (8.5-10.1); CHLORIDE 104 MMOL/L (99-107); CREATININE 1.03 MG/DL (0.60-1.10); GLUCOSE 96 MG/DL (70-104); MAGNESIUM 2.1 MG/DL (1.5-2.4); PHOSPHORUS 1.4 MG/DL (2.3-4.5); POTASSIUM 3.4 MMOL/L (3.5-5.1); SODIUM 138 MMOL/L (135-145); TOTAL CARBON DIOXIDE 25.8 MMOL/L (24-32); TOTAL PROTEIN 6.2 G/DL (6.4-8.2); eCRCL 97 ML/MIN; eGFR 81 ML/MIN
[2024-03-18 09:12] LABS: LIPASE > 375 U/L (16-77)
[2024-03-18] MEDS ORDERED: LORazepam 2 mg/ml vial IV PRN (15:05)
[2024-03-18] MEDS: potassium Cl 20 mEq SR tablet PO PRN (19:30)
[2024-03-19] VITALS (7 sets, daily range): BP systolic 106–124; BP diastolic 73–89; PULSE 81–97; RESP 15–20; TEMP 96.9–99.5; O2SAT 93–97
[2024-03-19 06:41] LABS: BASOPHILS # (AUTO) 0.1 X10'3 (0-0.2); BASOPHILS % (AUTO) 0.9 % (0-1); EOSINOPHILS # (AUTO) 0.2 X10'3 (0-0.9); EOSINOPHILS % (AUTO) 2.4 % (0-6); LYMPHOCYTES # (AUTO) 1.4 X10'3 (1.1-4.8); LYMPHOCYTES % (AUTO) 14.5 % (21-51); MEAN PLATELET VOLUME 7.2 FL (7.4-10.4); MONOCYTES # (AUTO) 0.7 X10'3 (0-0.9); MONOCYTES % (AUTO) 7.2 % (2-12); NEUTROPHILS # (AUTO) 7.3 X10'3 (1.8-7.7); PLATELET COUNT 155 X10'3 (140-440); WHITE BLOOD COUNT 9.7 X10'3 (4.5-11.0)
[2024-03-19 06:50] LABS: INR 1.1 INR; PROTHROMBIN TIME 11.1 SECONDS (9.0-12.0)
[2024-03-19 06:59] LABS: ALANINE AMINOTRANSFERASE 39 U/L (12-78); ALBUMIN 2.8 G/DL (3.4-5.0); ALBUMIN/GLOBULIN RATIO 0.8 (1.1-1.5); ALKALINE PHOSPHATASE 50 IU/L (46-116); ANION GAP 8 (8-16); ASPARTATE AMINO TRANSFERASE 27 U/L (10-37); BILIRUBIN,TOTAL 1.7 MG/DL (0.1-1.0); BLOOD UREA NITROGEN 7 MG/DL (7-18); BUN/CREATININE RATIO 7.1 (10.0-20.0); CALCIUM 7.7 MG/DL (8.5-10.1); CHLORIDE 104 MMOL/L (99-107); CREATININE 0.98 MG/DL (0.60-1.10); GLUCOSE 91 MG/DL (70-104); LIPASE 142 U/L (16-77); MAGNESIUM 2.2 MG/DL (1.5-2.4); PHOSPHORUS 1.8 MG/DL (2.3-4.5); POTASSIUM 3.7 MMOL/L (3.5-5.1); SODIUM 136 MMOL/L (135-145); TOTAL CARBON DIOXIDE 24.5 MMOL/L (24-32); TOTAL PROTEIN 6.5 G/DL (6.4-8.2); eCRCL 102 ML/MIN; eGFR 86 ML/MIN
[2024-03-19 07:28] LABS: HEMATOCRIT 37.4 % (42.0-52.0); HEMOGLOBIN 13.3 g/dl (14.0-17.9); MEAN CORPUSCULAR HGB CONC 35.6 g/dL (33.0-36.5); MEAN CORPUSCULAR VOLUME 92.7 FL (78-98); RED BLOOD COUNT 4.04 X10'6 (4.70-6.10)
[2024-03-19] MEDS: LORazepam 1 MG tablet PO PRN (12:29)
[2024-03-19] MEDS ORDERED: traMADol 50MG tablet PO PRN (18:00)
[2024-03-19] MEDS: acetaminophen 1,000mg/100ml IV 100 ML IV ONE (19:41)
[2024-03-20 03:39] VITALS: PULSE 76; RESP 17; O2SAT 96
[2024-03-20] MEDS: HYDROcodone/acetaminophen 10/325mg tab PO ONE (05:02)
[2024-03-20 06:00] VITALS: BP_SYST 117; BP_DIAS 79; BP_DIAS 88; PULSE 83; PULSE 93; RESP 14; RESP 16; TEMP 97.6; TEMP 98.1; O2SAT 96
[2024-03-20 06:41] LABS: BASOPHILS % (AUTO) 0.5 % (0-1); EOSINOPHILS # (AUTO) 0.2 X10'3 (0-0.9); EOSINOPHILS % (AUTO) 2.6 % (0-6); HEMATOCRIT 37.3 % (42.0-52.0); HEMOGLOBIN 13.3 g/dl (14.0-17.9); LYMPHOCYTES # (AUTO) 1.2 X10'3 (1.1-4.8); LYMPHOCYTES % (AUTO) 12.8 % (21-51); MEAN CORPUSCULAR HEMOGLOBIN 32.7 PG (27.0-31.0); MEAN CORPUSCULAR HGB CONC 35.7 g/dL (33.0-36.5); MEAN CORPUSCULAR VOLUME 91.5 FL (78-98); MEAN PLATELET VOLUME 7.3 FL (7.4-10.4); MONOCYTES # (AUTO) 0.8 X10'3 (0-0.9); NEUTROPHILS # (AUTO) 6.8 X10'3 (1.8-7.7); NEUTROPHILS % (AUTO) 75.1 % (42-75); PLATELET COUNT 189 X10'3 (140-440); RED BLOOD COUNT 4.07 X10'6 (4.70-6.10); RED CELL DISTRIBUTION WIDTH 13.1 % (11.5-14.5); WHITE BLOOD COUNT 9.1 X10'3 (4.5-11.0)
[2024-03-20 06:53] LABS: INR 1.1 INR; PROTHROMBIN TIME 11.2 SECONDS (9.0-12.0)
[2024-03-20 07:10] LABS: ALANINE AMINOTRANSFERASE 37 U/L (12-78); ALBUMIN 2.9 G/DL (3.4-5.0); ALBUMIN/GLOBULIN RATIO 0.7 (1.1-1.5); ALKALINE PHOSPHATASE 59 IU/L (46-116); ANION GAP 10 (8-16); ASPARTATE AMINO TRANSFERASE 23 U/L (10-37); BILIRUBIN,TOTAL 1.5 MG/DL (0.1-1.0); BLOOD UREA NITROGEN 8 MG/DL (7-18); BUN/CREATININE RATIO 8.4 (10.0-20.0); CHLORIDE 104 MMOL/L (99-107); CREATININE 0.95 MG/DL (0.60-1.10); GLUCOSE 97 MG/DL (70-104); LIPASE 100 U/L (16-77); MAGNESIUM 2.4 MG/DL (1.5-2.4); PHOSPHORUS 2.7 MG/DL (2.3-4.5); POTASSIUM 3.5 MMOL/L (3.5-5.1); SODIUM 138 MMOL/L (135-145); TOTAL CARBON DIOXIDE 24.2 MMOL/L (24-32); TOTAL PROTEIN 6.9 G/DL (6.4-8.2); eCRCL 105 ML/MIN; eGFR 89 ML/MIN
[2024-03-20 08:00] VITALS: RESP 17
[2024-03-20 08:39] VITALS: PULSE 100; RESP 18; O2SAT 97
[2024-03-20 10:00] VITALS: BP 122/87; PULSE 90; RESP 18; TEMP 97.5; O2SAT 98
[2024-03-20] MEDS ORDERED: LORazepam 2 mg/ml vial IV PRN (15:05)
[2024-03-20] MEDS ORDERED: LORazepam 1 MG tablet PO PRN (15:05)
[2024-03-21] MEDS ORDERED: pantoprazole 40mg Tablet.DR PO SCH (07:30)
[2024-03-21] MEDS ORDERED: folic acid 1mg tablet PO SCH (08:00)
== END 2024-03-20 16:30 | disposition home or self-care (01) | DRG 282 ==
LOC: ER 09:49 → ED HOLD 15:12 → ORTHO 4S 03-17 04:30
PROVIDERS: ADMIT Family Medicine; ATTEND Family Medicine
PROC: 5A09357 Assistance with Respiratory Ventilation, Less than 24 Consecutive Hours, Continuous Positive Airway Pressure (ICD-10-PCS; principal; 2024-03-17)
PROC: 5A09357 Assistance with Respiratory Ventilation, Less than 24 Consecutive Hours, Continuous Positive Airway Pressure (ICD-10-PCS; 2024-03-18)
PROC: 5A09357 Assistance with Respiratory Ventilation, Less than 24 Consecutive Hours, Continuous Positive Airway Pressure (ICD-10-PCS; 2024-03-20)
DX: K85.90 Acute pancreatitis without necrosis or infection, unspecified (principal); F10.231 Alcohol dependence with withdrawal delirium; N17.9 Acute kidney failure, unspecified; I42.9 Cardiomyopathy, unspecified; R74.01 Elevation of levels of liver transaminase levels; K86.1 Other chronic pancreatitis; K75.9 Inflammatory liver disease, unspecified; G47.33 Obstructive sleep apnea (adult) (pediatric); F32.A Depression, unspecified; I10 Essential (primary) hypertension; F17.210 Nicotine dependence, cigarettes, uncomplicated; Z88.5 Allergy status to narcotic agent; Z91.030 Bee allergy status; Z79.899 Other long term (current) drug therapy; Z81.1 Family history of alcohol abuse and dependence
CPT/HCPCS: 36415; 71045; 76700; 80053; 82948; 83690; 83735; 83880; 84100; 84484; 85025; 85610; 87081; 93005; 93306; 94660; 94760; 97161; 97530; 99291; G0378; J0131; J1171; J1885; J2060; J2405; J2470; J7030; Q0177